=== PATIENT | male | born 1970 | race Caucasian/White ===

== ENCOUNTER 2023-08-24 06:34 | Day surgery (SDC) | payer OTHER ==
[2023-08-19 14:22] LABS: BASOPHILS % (AUTO) 0.3 % (0-1); EOSINOPHILS # (AUTO) 0.2 X10'3 (0-0.9); LYMPHOCYTES % (AUTO) 19.2 % (21-51); PRE OP HEMOGLOBIN 15.9 g/dL (14.0-17.9); PRE OP WHITE BLOOD COUNT 8.6 10'3 (4.8-10.8); RED CELL DISTRIBUTION WIDTH 12.9 % (11.5-14.5)
[2023-08-19 14:24] LABS: EOSINOPHILS % (AUTO) 2.4 % (0-6); LYMPHOCYTES # (AUTO) 1.7 X10'3 (1.1-4.8); MEAN CORPUSCULAR HEMOGLOBIN 30.7 PG (27.0-31.0); MEAN CORPUSCULAR HGB CONC 34.8 g/dL (33.0-36.5); MEAN CORPUSCULAR VOLUME 88.2 FL (78-98); MEAN PLATELET VOLUME 6.9 FL (7.4-10.4); MONOCYTES # (AUTO) 0.6 X10'3 (0-0.9); MONOCYTES % (AUTO) 7.3 % (2-12); NEUTROPHILS # (AUTO) 6.1 X10'3 (1.8-7.7); NEUTROPHILS % (AUTO) 70.8 % (42-75); PRE OP HEMATOCRIT 45.6 % (42.0-52.0); PRE OP PLATELET COUNT 203 X10'3 (140-440); RED BLOOD COUNT 5.17 X10'6 (4.70-6.10)
[2023-08-19 14:37] LABS: ALBUMIN/GLOBULIN RATIO 1.1 (1.1-1.5); ALKALINE PHOSPHATASE 81 IU/L (46-116); BLOOD UREA NITROGEN 12 MG/DL (7-18); BUN/CREATININE RATIO 12.4 (10.0-20.0); CALCIUM 8.9 MG/DL (8.5-10.1); CHLORIDE 100 MMOL/L (99-107); CREATININE 0.97 MG/DL (0.60-1.10); PRE OP ANION GAP 9 (8-16); PRE OP AST 28 U/L (10-37); PRE OP BILIRUB, TOTAL 0.8 MG/DL (0.0-1.0); PRE OP GLUCOSE 93 MG/DL (70-104); PRE OP SODIUM 136 MMOL/L (135-145); TOTAL CARBON DIOXIDE 27.5 MMOL/L (24-32); TOTAL PROTEIN 7.6 G/DL (6.4-8.2); eGFR 81 ML/MIN
[2023-08-19 14:38] LABS: PRE OP ALT 94 U/L (30-65)
[~2023-08-24] VITALS: Ht 180.3 cm; Wt 111.8 kg
[2023-08-24] VITALS (13 sets, daily range): BP systolic 109–150; BP diastolic 77–150; PULSE 66–85; RESP 10–16; TEMP 98.3; O2SAT 96–100
[~2023-08-24 06:34] MED LIST: LOSA100T58 PO; cefazolin 2gm/D5W 100mL 100 ML IV ONE; famotidine 20mg tablet PO ONE; ringers solution, lacted 1,000 ML IV SCH
[2023-08-24] MEDS ORDERED: LIDOcaine 1% (10mg/ml)w/preservative inj. 20ml MDV ONE (07:02)
[2023-08-24] MEDS ORDERED: BUPIVAcaine/PF 2.5mg/ml (0.25%) 10ml vial ONE (07:02)
[2023-08-24] MEDS ORDERED: BUPIVACAINE liposomal/PF 13.3 MG/ML vial IM ONE (07:03)
[2023-08-24] MEDS ORDERED: sevoflurane 250ml liquid IH ONE (07:46)
[2023-08-24] MEDS ORDERED: LIDOcaine 2% (20mg/ml) 5ml vial ONE (07:46)
[2023-08-24] MEDS ORDERED: fentaNYL/PF 50MCG/1 ML 2ML syringe ONE (07:54)
[2023-08-24] MEDS ORDERED: midazolam 1 mg/ML 2ml injection ONE (07:54)
[2023-08-24] MEDS ORDERED: ringers solution, lacted 1,000 ML IV SCH (08:35)
[2023-08-24] MEDS ORDERED: ondansetron/PF 4mg/2ml inj IV PRN (08:35)
[2023-08-24] MEDS ORDERED: proCHLORperazine 10 MG/2 ml inj IV PRN (08:35)
[2023-08-24] MEDS ORDERED: morphine 4 MG/ML inj SYRINge IV PRN (08:35)
[2023-08-24] MEDS ORDERED: morphine 2 MG/ML inj. syringe IV PRN (08:35)
[2023-08-24] MEDS ORDERED: meperidine/PF 25mg/ml syringe IV PRN ×3 (08:35)
[2023-08-24] MEDS: BUPIVAcaine 2.5mg/ml inj 50ml vial (contains preservative) ONE ×2 (08:38→08:39)
[2023-08-24] MEDS ORDERED: rocuronium 10mg/ml inj IV ONE (08:54)
[2023-08-24] MEDS ORDERED: dexamethasone sod phosphate 4mg/ml inj. ONE (08:54)
[2023-08-24] MEDS ORDERED: ondansetron/PF 4mg/2ml inj ONE (08:54)
[2023-08-24] MEDS ORDERED: propofol inj 20 ML IV ONE (08:54)
[2023-08-24] MEDS ORDERED: neostigmine methylsulfate 1 MG/ML 10ml vial ONE (08:55)
[2023-08-24] MEDS ORDERED: glycopyrrolate 0.2mg/ml inj ONE (08:55)
[2023-08-24] MEDS ORDERED: acetaminophen 1,000mg/100ml IV 100 ML IV ONE (08:57)
[2023-08-24] MEDS ORDERED: oxyCODONE/APAP 5-325mg tablet PO PRN (09:30)
== END 2023-08-24 11:04 | disposition home or self-care (01) ==
LOC: PAS 06:34
PROVIDERS: ATTEND Surgery
DX: K42.9 Umbilical hernia without obstruction or gangrene (principal); M62.08 Separation of muscle (nontraumatic), other site; I10 Essential (primary) hypertension; Z79.899 Other long term (current) drug therapy
CPT/HCPCS: 36415; 49591; 64488; 80053; 82948; 85025; 93005; C1781; C9290; J0131; J0690; J1100; J2175; J2250; J2405; J2704; J2710; J3010; J3490; J7030; J7120; Z7506; Z7508; Z7512; A4215; A4618